=== PATIENT | female | born 1980 | race Caucasian/White ===

== ENCOUNTER 2020-06-02 14:28 | Outpatient (REF) | payer OTHER, SELFPAY | END 2020-06-02 14:29 | disposition home or self-care (01) | LOC: HO.LAB 14:28 | PROVIDERS: Visit Provider Internal Medicine | DX: Z20.828 Contact with and (suspected) exposure to other viral communicable diseases (principal) | CPT/HCPCS: C9803; U0003 ==

== ENCOUNTER 2022-07-25 14:54 | Outpatient (REF) | payer OTHER, SELFPAY ==
--- NOTE | ~2022-07-25 | MM_ITS ---
EXAMINATION: MM SCREENING DIGITAL BREAST TOMOSYNTHESIS, BILATERAL CLINICAL INFORMATION: Screening. Asymptomatic. The lifetime risk of breast cancer based on the Tyrer-Cuzick Model is 17.1%. COMPARISON: Mammography: None TECHNIQUE: Digital breast tomosynthesis is performed in both the craniocaudal and mediolateral oblique views along with computer-aided detection (CAD). Synthesized 2D images are generated from the tomosynthesis. FINDINGS: The breasts are extremely dense, which lowers the sensitivity of mammography (ACR BI-RADS breast composition Category d). There are no significant masses, abnormal calcifications, or other abnormalities. MM/MM tomosynthesis screening BI IMPRESSION: No mammographic evidence of malignancy. ASSESSMENT: BI-RADS 1: Negative RECOMMENDATION: Routine annual mammography screening. This patient's information was entered into a reminder system with a target due date for their next mammogram.
== END 2022-07-25 14:55 | disposition home or self-care (01) ==
LOC: HO.MAMMO 14:54
PROVIDERS: PCP Internal Medicine; Visit Provider Internal Medicine
DX: Z12.31 Encounter for screening mammogram for malignant neoplasm of breast (principal)
CPT/HCPCS: 77063; 77067

== ENCOUNTER → 2022-12-07 10:43 | Outpatient (REF) | payer OTHER, SELFPAY ==
--- NOTE | 2022-12-07 10:52 | CA_ITS ---
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 The calculated ejection fraction is 69% by biplane method. - No obvious valvular pathology seen on this study. Findings Left Ventricle Normal left ventricular cavity size. There is normal left ventricular wall thickness. The left ventricular systolic function is normal. The calculated ejection fraction is 69% by biplane method. There is no evidence of regional wall motion abnormalities. Diastolic function is normal for age. LV peak GLS -18.9%. Right Ventricle Normal right ventricular cavity size and systolic function. Atria Both atria are normal in size. Aortic Valve There is a normal trileaflet aortic valve. There is no aortic valve stenosis. There is no aortic valve regurgitation. Mitral Valve The mitral valve appears normal. There is no mitral valve regurgitation. There is no mitral valve stenosis. Pulmonic Valve The pulmonic valve is likely normal. There is trace pulmonic valve regurgitation. Tricuspid Valve Normal tricuspid valve structure. There is trace tricuspid valve regurgitation. There is no evidence of pulmonary hypertension. Great Vessels The asc aorta is normal in size. Venous The inferior vena cava is normal in size and collapses greater than 50% with inspiration. Pericardium/Pleural There is no evidence of pericardial effusion. Prior Study Comparison No prior study available for comparison. Recommendations, Care & Conclusions No obvious valvular pathology seen on this study. Measurements 2D Linear Measurements IVSd: 0.90 0.6-0.9/0.6-1.0 cm LVIDd: 4.95 3.9-5.3/4.2-5.9 cm LVIDd Index: 2.84 2.4-3.2/2.2-3.1 cm/m2 LVIDs: 3.01 2.0-3.6 cm LVPWd: 0.86 0.7-1.1 cm Ao Root: 2.80 2.1-3.5 cm LA Diam: 3.10 2.7-3.8/3.0-4.0 cm LAIDs Index: 1.78 1.5-2.3 cm/m2 LV Mass: 187.64 67-162/88-224 g LV Mass Index: 107.84 43-95/49-115 g/m2 LVOT Diam: 2.20 3.0+(-)1.3 cm 2D Systolic Function EF 4C: 58.00 >55% EF 2C: 74.40 >55% EF BiP: 68.90 >55% Mitral Valve MV Pk E: 0.76 MV PK A: 0.55 MV Decel Time: 155.00 E/A: 1.40 E'Medial: 10.80 E/E' Med: 7.00 PHT: 45.00 MVA PHT: 4.89 Decel [place]: 4.90 Aortic Valve AoV Pk Teo: 1.31 AoV Mn Teo: 0.73 AoV VTI: 0.27 AoV Pk Grad: 7.00 Aov Mn Grad: 3.00 ELPIDIO Cont.VTI: 3.19 LVOT LVOT Pk Teo: 1.00 LVOT Mn Teo: 0.61 LVOT VTI: 0.23 LVOT Pk Grad: 4.00 LVOT Mn Grad: 2.00 LVOT Diam: 2.20 LVOT Area: 3.80 Diastolic Function MV Pk E: 0.76 MV Pk A: 0.55 E/A: 1.40 E'Medial: 10.80 E/E' Med: 7.00 Tricuspid Valve TR Pk Teo: 2.23 TR Pk Grad: 20.00 RA Press: 3.00 RVSP: 23.00 Great Vessels Aorta Ao Root-2D: 2.80 2.0-3.7 cm Ao Asc: 2.90 2.1-3.4 cm Pulmonary Valve PV Pk Teo: 1.10 Peak PV Grad: 5.00 Updated in Other Vendor System with Status of Final Shankar Stewart MD electronically signed on 12/08/2022 1:24:42 PM with status of Final
--- NOTE | 2022-12-07 11:58 | HM_ITS ---
* Total monitoring time about 3 days. * Underlying rhythm is sinus. Average ventricular rate 91/Min. Range 53 to 155/Min. * About 27% of the time, rate >100/min; sinus tachycardia. * Very rare supraventricular and ventricular ectopy. * No sustained arrhythmias. * No significant pauses or AV blocks. * No patient markers or events in diary. MTDD
== END ==
LOC: HO.CARD 10:43
PROVIDERS: PCP Internal Medicine; Visit Provider Internal Medicine
DX: R00.2 Palpitations (principal); I47.1 Supraventricular tachycardia; Z86.16 Personal history of COVID-19
CPT/HCPCS: 93242; 93306; 93356

== ENCOUNTER 2023-07-31 15:08 | Outpatient (REF) | payer OTHER, SELFPAY ==
--- NOTE | ~2023-07-31 | MM_ITS ---
EXAMINATION: MM SCREENING DIGITAL BREAST TOMOSYNTHESIS, BILATERAL CLINICAL INFORMATION: Screening. Asymptomatic. COMPARISON: Mammography: This study is compared with the prior mammogram dating back to 2022. There are no other mammograms for comparison. TECHNIQUE: Digital breast tomosynthesis is performed in both the craniocaudal and mediolateral oblique views along with computer-aided detection (CAD). Synthesized 2D images are generated from the tomosynthesis. FINDINGS: The breasts are heterogeneously dense, which may obscure small masses (ACR BI-RADS breast composition Category c). There is a partially circumscribed focal asymmetry in the upper outer quadrant of the left breast. Additional mammographic and targeted sonographic evaluation of this finding is advised. In the right breast, there are no significant masses, abnormal calcifications, or other abnormalities. MM/MM tomosynthesis screening BI IMPRESSION: Focal asymmetry of the left breast warrants additional mammographic and targeted sonographic evaluation. No mammographic signs of malignancy right breast. ASSESSMENT: BI-RADS BI-RADS 0 - Incomplete: Needs additional Imaging. RECOMMENDATION: 1. Additional views of the left breast 2. Targeted ultrasound if warranted after review of the additional views. 3. Radiology department staff will contact the patient for additional imaging. Additional Imaging required This examination should not preclude the clinical evaluation of a suspicious palpable abnormality. This patient's information was entered into a reminder system with a target due date for their next mammogram.
== END 2023-07-31 15:09 | disposition home or self-care (01) ==
LOC: HO.MAMMO 15:08
PROVIDERS: PCP Internal Medicine; Visit Provider Internal Medicine
DX: Z12.31 Encounter for screening mammogram for malignant neoplasm of breast (principal)
CPT/HCPCS: 77063; 77067

== ENCOUNTER → 2023-07-31 15:15 | Outpatient (BNV) | payer OTHER, SELFPAY | PROVIDERS: PCP Internal Medicine; Visit Provider Radiology Diagnostic Radiology | DX: Z12.31 Encounter for screening mammogram for malignant neoplasm of breast (principal) | CPT/HCPCS: 77063; 77067 ==

== ENCOUNTER 2023-08-23 13:16 | Outpatient (REF) | payer OTHER, SELFPAY ==
--- NOTE | ~2023-08-23 | US_ITS ---
EXAMINATION: MM DIAGNOSTIC DIGITAL BREAST TOMOSYNTHESIS, LEFT US BREAST LIMITED, LEFT MAMMOGRAPHY: CLINICAL INFORMATION: Diagnostic mammogram to evaluate left breast upper outer partially circumscribed focal asymmetry seen on screening exam. COMPARISON: Mammography: 07/31/2023, 07/25/2022. TECHNIQUE: Digital left breast tomosynthesis is performed in the following views: Full-field digital 3-D left mediolateral view, 3-D spot compression left CC x2, and left MLO x1 views. Targeted left breast ultrasound to follow. FINDINGS: The breasts are heterogeneously dense, which may obscure small masses (ACR BI-RADS breast composition Category c). Diagnostic views demonstrate several oval and rounded circumscribed masses throughout the left breast, most notable at the 2:00 axis, and the 7:00 axis. These will be evaluated by ultrasound. No skin or axillary abnormality. No new suspicious left breast finding. ULTRASOUND: CLINICAL INFORMATION: Evaluate circumscribed masses left breast, particularly 2:00 axis and 7:00 axis. COMPARISON: No prior ultrasound. TECHNIQUE: Targeted sonographic evaluation left breast was performed using a high frequency linear transducer. Attention was given to the 2:00 to the 7:00 axes. Selected archived documentation. 2 ultrasound cine clips in the longitudinal and transverse planes were also obtained. FINDINGS: LEFT BREAST: -There is dense fibrocystic tissue throughout the left breast. There are innumerable small cysts, which are simple. -In the 2:00 axis, 2 cm from the nipple, there is a simple cyst measuring 2.4 x 2.0 x 1.2 cm, corresponding with the mammographic focus of concern. -In the 7:00 axis of the left breast, 4 cm from the nipple, there is a 7 mm oval simple cyst, correlating to the 7:00 axis mammographic focus of concern. There are no solid masses, regions of abnormal shadowing, regions of parenchymal distortion, or edema within the soft tissue planes. US/US breast LT limited mamm only IMPRESSION: There are numerous simple cysts throughout the left breast as detailed above. These are benign. There is diffuse fibrocystic change. There are no suspicious abnormalities. Given the density of the breast tissue, and complexity of the dense fibrocystic tissue with innumerable cysts, correlating with MRI as a screening adjunct should be considered. OVERALL ASSESSMENT: Mammography: BI-RADS 2 - Benign Findings Ultrasound: BI-RADS 2 - Benign Findings RECOMMENDATION: 1 year F/U Results were provided to the patient at time of visit by the technologist. This patient's information was entered into a reminder system with a target due date for their next mammogram.
== END 2023-08-23 13:17 | disposition home or self-care (01) ==
LOC: HO.MAMMO 13:16
PROVIDERS: PCP Internal Medicine; Visit Provider Internal Medicine
DX: N64.89 Other specified disorders of breast (principal)
CPT/HCPCS: 76642; 77061; 77065

== ENCOUNTER → 2023-08-23 13:30 | Outpatient (BNV) | payer OTHER, SELFPAY | PROVIDERS: PCP Internal Medicine; Visit Provider Radiology Diagnostic Radiology | DX: N60.02 Solitary cyst of left breast (principal) | CPT/HCPCS: 76642; 77061; 77065 ==

== ENCOUNTER 2024-08-07 15:07 | Outpatient (REF) | payer BC, SELFPAY | END 2024-08-07 15:08 | disposition home or self-care (01) | LOC: HO.MAMMO 15:07 | PROVIDERS: PCP Internal Medicine; Visit Provider Internal Medicine | DX: Z12.31 Encounter for screening mammogram for malignant neoplasm of breast (principal) | CPT/HCPCS: 77063; 77067 ==

== ENCOUNTER → 2024-08-07 15:15 | Outpatient (BNV) | payer BC, SELFPAY | PROVIDERS: PCP Internal Medicine; Visit Provider Internal Medicine | DX: Z12.31 Encounter for screening mammogram for malignant neoplasm of breast (principal) | CPT/HCPCS: 77063; 77067 ==

== ENCOUNTER 2025-06-07 08:21 | Outpatient (AMB) | payer OTHER, SELFPAY ==
--- NOTE | 2025-06-07 08:26 | A.OFFVIS_ITS ---
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 Sexually active: Yes Sexual orientation: Straight/Heterosexual Gender identity: Female Female Reproductive History Menstrual Age of Menarche: 10 Duration of menses: 3-5 days Date of last menstrual period: 06/03/25 Total pregnancies: 2 Full term: 2 Number of Living Children: 2 Date of Mammogram: 08/07/24 History of abnormal mammogram: No Review of Systems Const All systems reviewed & are unremarkable except as noted in HPI and below Card Reports as per HPI Resp Reports as per HPI GI Reports as per HPI and Reports no additional complaints Reports as per HPI Physical Exam Vital Signs: Last Vital Signs BP 112/70 06/07/25 08:28 BMI result Body Mass Index 24.2 Const General: cooperative, healthy appearing and comfortable Chest Chest palpation & inspection: normal inspection of the chest and normal palpation of entire chest wall Breast/axilla inspection: normal inspection of the breasts and normal inspection of the axillae Breast/axilla palpation: normal palpation of the breasts, normal palpation of the axillae and no axillary lymphadenopathy Resp Effort & Inspection: normal respiratory effort Auscultation: clear to auscultation bilaterally Percussion: percussion normal Cardio Palpation: normal PMI Rate: regular rate Rhythm: regular rhythm Heart sounds: no murmurs and no rubs Peripheral pulses: Peripheral pulses 2+ throughout GI Inspection: Yes normal to inspection Palpation (GI): Soft to palpation, nontender, no guarding, not rigid and No hepatosplenomegaly present Percussion: Yes normal to percussion Auscultation: normal bowel sounds Rectal Exam - Female: deferred General: Yes bladder normal to palpation External Female Exam: No lesion Speculum Exam - Vagina: normal appearance of the vagina, normal palpation, normal vaginal discharge and not erythematous Speculum Exam - Cervix: normal appearance of the cervix and normal palpation Bimanual exam- vagina & uterus: normal bimanual exam, normal palpation, uterine size normal, bladder normal to palpation, consistency normal and normal palpation Bimanual Exam- Adnexa, other: normal adnexae, no masses and no tenderness Assessment & Plan Assessment & Plan (1) Well woman exam: Code(s): Z01.419 - Encounter for gynecological examination (general) (routine) without abnormal findings Category: Medical Plan: Cotesting done. Mammogram ordered. Counseled the patient about the recommended dietary allowance of 1000 mg of Calcium & 600 IU of vitamin D. The patient was instructed to perform monthly self-breast exams and to schedule an annual exam in a year; All questions answered and the patient verbalized understanding. Instructed the patient to schedule annual exam in a year (2) Abnormal uterine bleeding (AUB): Code(s): N93.9 - Abnormal uterine and vaginal bleeding, unspecified Category: Medical Plan: Co testing done, GC and chlamydia taken CBC, TSH, HCG, FSH/LH and pelvic ultras ound ordered. Discussed with the patient the different causes of abnormal bleeding including thyroid disorders, uterine and ovarian pathology, endometrial hyperplasia, carcinoma and other potential causes. Discussed with the patient the work up including CBC (to r/o anemia), TSH, FSH/LH pelvic Ultrasound, endometrial biopsy to r/o endometrial pathology. All questions answered and the patient verbalized understanding. Instructed the patient to schedule an appointment for an endometrial biopsy in 2 weeks. Orders: Orders US pelvic and transvaginal Today N93.9 - Abnormal uterine and vaginal bleeding, unspecified Prolactin Today N93.9 - Abnormal uterine and vaginal bleeding, unspecified MM tomosynthesis screening BI Today Z12.31 - Encounter for screening mammogram for malignant neoplasm of breast Complete Blood Count no Diff Today N93.9 - Abnormal uterine and vaginal bleeding, unspecified TSH reflex Free T4 Today N93.9 - Abnormal uterine and vaginal bleeding, unspecified HCG Quantitative Today N93.9 - Abnormal uterine and vaginal bleeding, unspecified Lutenizing Hormone Today N93.9 - Abnormal uterine and vaginal bleeding, unspecified Follicle Stimulating Hormone Today N93.9 - Abnormal uterine and vaginal bleeding, unspecified Referrals Gastroenterology Referral Z12.11 - Encounter for screening for malignant neoplasm of colon Coding Level of Care Code New Pt Prev Care 40-64y(14830) Diagnoses Well woman exam Z01.419 Abnormal uterine bleeding (AUB) N93.9
[2025-06-07 08:28] VITALS: BP 112/70; BMI 24.2
--- OUTSIDE RECORDS SUMMARY | 2025-06-07 08:29 | XMS_ITS | Clinical Summary ---
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 care facility 10/13/2024 Assessment & Plan (10/13/2024 10:19 AM EDT): Routine lab work including CMP, lipid panel, thyroid panel as well as one-time HIV screening ordered. Up-to-date on mammogram, will be due July 2025. Pap smear scheduled. Up-to-date with annual skin exam. Up-to-date with dental and eye care. Advised to maintain a balanced diet rich in fruits and vegetables as well as adequate hydration. Sialoadenitis 10/13/2024 Assessment & Plan (10/13/2024 10:20 AM EDT): She has experienced 3 episodes of parotid gland inflammation over the past 15 months. The use of sour candies is recommended to stimulate salivary gland production and potentially reduce swelling. If another episode occurs, a CT scan of the face will be considered to rule out any anatomical abnormalities. Will also consider ENT referral. Gastroesophageal reflux disease without esophagi tis 10/13/2024 Assessment & Plan (10/13/2024 10:20 AM EDT): Some of her symptoms including heartburn as well as a bitter taste in her mouth coincide with reflux. She is advised to avoid known triggers for reflux, such as spicy food, chocolate, peppermint, and coffee. Eating before bedtime should be avoided, and she should elevate her head while sleeping to help reduce symptoms. Yjrx-pyz-[id number] Pepcid (famotidine) is recommended for symptom management. If symptoms persist despite Pepcid use, Prilosec (omeprazole) may be considered as an alternative. If Prilosec is ineffective, a referral to gastroenterology for an endoscopy will be made to rule out any anatomical abnormalities in the throat. Tachycardia 10/13/2024 Assessment & Plan (10/13/2024 10:20 AM EDT): She notes vague history of tachycardia with a heart rate in the 170s, asymptomatic. This has not happened in a long time. She is advised to perform vasovagal maneuvers if she experiences another episode of tachycardia. If another episode occurs, she should inform the provider so that a long-term heart monitor can be used for further evaluation. Other constipation 10/13/2024 Assessment & Plan (10/13/2024 10:20 AM EDT): She is advised to increase fiber intake and ensure adequate hydration. If constipation persists after a few days, MiraLAX (polyethylene glycol) is recommended. Psychophysiological insomnia 10/13/2024 Assessment & Plan (10/13/2024 10:21 AM EDT): She reports poor sleep quality, often waking up at 1 AM and 3 AM. Immunizations Immunization Administration Dates Next Due DTaP 03/10/2014 Family History Medical History Relation Comments Alcohol abuse Father Colon cancer Mother Relation Status Comments Father Mother Social History Tobacco Use Types Packs/Day Years Used Date Smoking Tobacco: Never Passive Smoke Exposure: Never Smokeless Tobacco: Never Tobacco Cessation:Counseling Given: Not Answered Alcohol Use Standard Drinks/Week Comments Yes 0 (1 standard drink = 0.6 oz pur e alcohol) Socially. Child or Family Care Answer Date Record ed Do you have problems with on e of the following making it difficult for you to work, study, or receive health care? No 10/06/2024 Education Answer Date Recorded Are you interested in help w ith more adult education (for example, completing high school, GED, job training, learning the [place] language, technical skills, or developing parenting skills)? No 10/06/2024 Are you concerned about learning? Not on file 10/06/2024 No 10/06/2024 Yes 10/06/2024 Food Answer Date Recorded Within the past 6 months we worried whether our food would run out before we got money to buy more. Never True 10/06/2024 Within the past 6 months the food we bought just didn't last and we didn't have enough money to get more. Never True Residential Stability Answer Date Recor ded What is your housing situation today? I have anastasiya sing 10/06/2024 How many times have you move d in the past 12 months? Zero (I did not move) 10/06/2024 Paying for Meds Answer Date Recorded Do you have trouble paying for medicines? No 10/06/2024 Paying Utility Bills Answer Date Record ed Do you have trouble paying your heating or elect ricity bill? No 10/06/2024 Transportation Answer Date Recorded Has the lack of transportati on kept you from medical appointments or from getting medications? No 10/06/2024 Unemployment Answer Date Recorded Are you currently unemployed or working on a part-time or temporary basis, and looking for work? No 10/06/2024 Digital Access Answer Date Recorded No 10/06/2024 Yes 10/06/2024 Do you have reliable internet access at home? Ye s 10/06/2024 Do you have a device (e.g., phone, tablet, computer) with a working camera? Yes 10/06/2024 Intimate Partner Violence Answer Date R ecorded Denied Basic Needs Not on file 10/06/2024 In the past 12 months have y ou been in a relationship with a person who hurts, threatens, or tries to control you? No 10/06/2024 Worried food would run out Not on file 10/06 In the past 12 months have y ou been in a relationship with a person who hurts, threatens, or tries to control you? No 10/06/2024 Comments Unknown Sex and Gender Information Value Date Recorded Sex Assigned at Not on file Legal Sex Female 5:48 PM EST Gender Identity Not on file Sexual Orientation Not on file Last Filed Vital Signs Vital Sign Reading Time Taken Comments Blood Pressure 100/64 10/13/2024 8:53 AM EDT Pulse 85 10/13/2024 8:53 AM EDT Temperature 36.8 C (98.2 F) 10/13/2024 8:53 AM EDT Respiratory Rate 13 10/13/2024 8:53 AM EDT Oxygen Saturation 95% 10/13/2024 8:53 AM EDT Inhaled Oxygen Concentration - - Weight 72.2 kg (159 lb 3.2 oz) 10/13/2024 8:53 A M EDT Height 167.6 cm (5' 6 ) 10/13/2024 8:53 AM EDT Body Mass Index 25.7 10/13/2024 8:53 AM EDT Plan of Treatment Upcoming Encounters Date Type Department Care Team (Late st Contact Info) Description 10/14/2025 9:00 AM EDT Office Visit [facility] Internal Medicine [address] [place] [address] Aditi Simmons PA-C [address] [place] [address] [email or web address] Health Maintenance Due Date Last Done Comments Adult Td,Tdap Booster 1979 HEPATITIS C SCREENING 12/02/1997 PAP SMEAR 12/02/2000 MAMMOGRAM 2019 COLOGUARD 12/02/2024 COLONOSCOPY 12/02/2024 COLORECTAL CANCER SCREENING 12/02/2024 FIT TEST 12/02/2024 FOBT 12/02/2024 SIGMOIDOSCOPY 12/02/2024 VIRTUAL COLONOSCOPY 12/02/2024 INFLUENZA VACCINE (#1) 2025 COVID-19 VACCINE (2024-2 6 season) 2025 06/13/2021, 10/25/2020, 09/27/2020 DEPRESSION SCREENING 10/06/2025 10/06/2024 SCREENING FOR DIABETES 10/15/2027 10/14/2024 LIPID PANEL 10/14/2029 10/14/2024 SMOKING STATUS SCREENING (On ce After 26 Yrs) Completed 10/13/2024 HIV ONE-TIME SCREENING (18-6 5 YEARS) Completed 10/14/2024 HEPATITIS A VACCINES Aged Out No long er eligible based on patient's age to complete this topic HIB VACCINES Aged Out No longer eligi ble based on patient's age to complete this topic MENINGOCOCCAL VACCINES (ACWY) Aged Out No longer eligible based on patient's age to complete this topic MENINGOCOCCAL VACCINES (B) Aged Out N o longer eligible based on patient's age to complete this topic PNEUMOCOCCAL VACCINES (0-49 years) Aged Out No longer eligible b ased on patient's age to complete this topic Medical Devices Not on file Procedures Procedure Name Priority Date/Time Associated Diagnosis Comments LIPID PANEL Routine 10/14/2024 8:16 AM EDT Routine general medical examination at a health care facility from Last 3 Months or Most Recently Relevant to Health Maintenance Results * (ABNORMAL) Lipid panel (10/14/2024 8:16 AM EDT) HDL 88 mg/dL [facility] Comment: Interpretation <40 mg/dL: Low HDL cholesterol (major risk factor for CHD) Greater than or equal to 60 mg/dL: High HDL cholesterol ( negative risk factor for CHD) HDL - cholesterol is affected by a number of factors, e.g. smoking, excerise, hormones, sex and age. CHOLESTEROL 174 0 - 240 mg/dL [facility] TRIGLYCERIDES 57 30 - 160 mg/dL [facility] LDL 75 50 - 129 mg/dL [facility] Comment: LDL levels in terms of risk for coronary heart disease: <100 mg/dL: Optimal 100-129 mg/dL: Near or above optimal 130-159 mg/dL: Borderline high 160-189 mg/dL: High >190 mg/dL: Very High CARDIAC RISK RATIO 2.0(L) 3.3 - 4.4 [facility] Blood 10/14/2024 8:16 AM EDT 10/14/2024 8:19 AM EDT us Aditi Simmons PA-C LAB BLOOD BKR ORDERABLES Fin al Result [address] [id number] from Last 3 Months or Most Recently Relevant to Health Maintenance [place] [address] [address] [place] [address] [facility] Member Subscriber Plan / Payer (Ef fective 2024-Present) Name:Jericho Angelia M Relation to Subscriber:Self Name:Jericho Angelia M Payer ID:[id number] (NAIC) Type:HMO Address: [address] [place], [place] Member Subscriber Plan / Payer (Ef fective 2024-Present) Name:Angelia Echavarria Relation to Subscriber:Self Name:Jericho Angelia M Payer ID:[id number] (NAIC) Type:HMO Address: [address] [place], [place] Member Subscriber Plan / Payer (Ef fective 2024-Present) Name:Angelia Echavarria Relation to Subscriber:Self Name:Jericho Angelia M Payer ID:[id number] (NAIC) Type:HMO Address: [address] [place], [place] 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 It is not the complete legal health record.[facility]
== END 2025-06-07 08:55 | disposition home or self-care (01) ==
LOC: HO.HWS 08:21
PROVIDERS: PCP Internal Medicine; Visit Provider Obstetrics & Gynecology
DX: Z01.419 Encounter for gynecological examination (general) (routine) without abnormal findings (principal); N93.9 Abnormal uterine and vaginal bleeding, unspecified
CPT/HCPCS: 99386; 99459

== ENCOUNTER 2025-06-07 08:21 | Outpatient (REF) | payer OTHER, SELFPAY ==
[2025-06-07 09:46] LABS: Hematocrit 39.1 % (37.0-47.0); Hemoglobin 12.9 g/dl (12.0-16.0); Mean Corpuscular HGB Conc 33.0 g/dl (31.0-35.0); Mean Corpuscular Hemoglobin 30.1 pg (27.0-33.0); Mean Corpuscular Volume 91.4 fL (80.0-98.0); NRBC Abs Auto 0.000 X10*3/uL (0.0-0.012); NRBC Pct Auto 0.0 /100WBC (0.0-0.2); Platelet Count 301 X10*3/uL (160-400); Red Blood Count 4.28 X10*6/uL (4.20-5.50); White Blood Count 7.5 X10*3/uL (4.8-10.8)
[2025-06-08 06:03] LABS: Follicle Stimulating Hormone 6.9 mIU/mL
== END 2025-06-07 08:22 | disposition home or self-care (01) ==
LOC: HO.LAB 08:21
PROVIDERS: PCP Internal Medicine; Visit Provider Obstetrics & Gynecology
DX: Z01.419 Encounter for gynecological examination (general) (routine) without abnormal findings (principal); N93.9 Abnormal uterine and vaginal bleeding, unspecified; Z13.29 Encounter for screening for other suspected endocrine disorder; Z32.00 Encounter for pregnancy test, result unknown
CPT/HCPCS: 36415; 83001; 83002; 84146; 84443; 84702; 85027

== ENCOUNTER 2025-06-07 10:42 | Outpatient (REF) | payer OTHER, SELFPAY ==
[2025-06-07 14:18] LABS: CT PCR NOT DETECTED (Not Detect.); NG PCR NOT DETECTED (Not Detect.)
== END 2025-06-07 10:43 | disposition home or self-care (01) ==
LOC: HO.LNP 10:42
PROVIDERS: Visit Provider Obstetrics & Gynecology
DX: Z01.419 Encounter for gynecological examination (general) (routine) without abnormal findings (principal); N93.9 Abnormal uterine and vaginal bleeding, unspecified; Z20.2 Contact with and (suspected) exposure to infections with a predominantly sexual mode of transmission; Z11.51 Encounter for screening for human papillomavirus (HPV)
CPT/HCPCS: 87491; 87591; 87626; 88175